=== PATIENT | female | born 1940 | race Asian ===

== ENCOUNTER 2018-10-14 18:32 | Inpatient (IN) | payer MEDICARE, MEDICAID ==
[~2018-10-14] VITALS: Ht 157.5 cm; Wt 62.1 kg
--- NOTE | 2018-10-14 18:32 | NUR ---
ED Nurse Note: A/Ox4. Brought in by [id number] from home due to tripped and fall as she was walking down the stairs. Pt states that she hit her left side of head on the ground and denies taking any blood thinners. Denies any pain. Hx of lung cancer. Last chemo was in September 20, 2018. Pt c/o left knee; swelling on the left knee noted. Addendum: 10/14/18 at 1847 by [email or web address] ED Nurse Note: A/Ox4. Brought in by [id number] from home due to tripped and fall as she was walking down the stairs. Pt states that she hit her left side of head on the ground and denies taking any blood thinners. Denies any pain. Hx of large B cell lymphoma. Last chemo was in September 20, 2018. Pt c/o left knee; swelling on the left knee noted.
[2018-10-14 18:35] VITALS: BP 165/82
--- NOTE | 2018-10-14 18:42 | Emergency Room Report ---
History of Present Illness General Chief Complaint: Multiple Trauma/Fall Source: Patient, Family Member, EMS Present Illness HPI She is a 78-year-old female who presented after a unwitnessed fall. Patient had prior history of lung cancer. She reportedly fell down while walking. She reports losing her balance immedially prior to fall. She denies loss of consciousness.Patient fell down just prior to arrival. Patient had prior history of B-cell lymphoma.Patient has had previous blood transfusions.Patient has been able to ambulate after the fall. She reports hitting the left side of her head. Allergies: Coded Allergies: DIPHENHYDRAMINE (Verified Allergy, Unknown, 10/14/18) PENICILLINS (Verified Allergy, Unknown, 10/14/18) Patient History Past Medical History: see triage record Reviewed Nursing Documentation: PMH: Agreed; PSxH: Agreed Review of Systems All Other Systems: negative except mentioned in HPI Physical Exam Vital Signs Date Time Temp Pulse Resp B/P (MAP) Pulse Ox O2 Delivery O2 Flow Rate FiO2 10/14/18 18:28 97.9 90 18 170/90 100 Room Air Sp02 EP Interpretation: reviewed, normal General Appearance: normal inspection, no apparent distress, alert, GCS 15, Chronically Ill Head: atraumatic ENT: normal ENT inspection, hearing grossly normal, normal voice Neck: normal inspection, full range of motion, supple, no bony tend Respiratory: normal inspection, lungs clear, normal breath sounds, no respiratory distress, no retraction, no wheezing Cardiovascular #1: regular rate, rhythm, no edema Gastrointestinal: normal inspection, normal bowel sounds, non tender, soft, no guarding, no hernia Genitourinary: no CVA tenderness Musculoskeletal: normal inspection, back normal, decreased range of motion, swelling Neurologic: normal inspection, alert, oriented x3, responsive, business executive III-XII nml as tested, speech normal Psychiatric: normal inspection, judgement/insight normal, mood/affect normal Skin: no rash, other - soft tissue swelling Medical Decision Making Diagnostic Impression: Primary Impression: Fall Additional Impressions: Head injury Knee effusion, left B-cell lymphoma Sinusitis ER Course Patient presented after a fall. Differential diagnosis include was not limited to head injury, cervical spine injury, fracture, anemia, syncopal episode among others. Because of complexity of patient's case laboratory testing and imaging studies were ordered. Patient was given IV pain medications. Patient was noted to have X-ray imaging of the left knee 4 views read by radiology showed suprapatellar effusion without evident fracture. CT of the head read by radiology showed diffuse sinus disease without evident acute intracranial hemorrhage or fracture. Patient was noted to have prior history of B-cell lymphoma. Dr. Stalin Nathan was contacted for inpatient management due to covering physician for Dr. Mathews. Labs Test 10/14/18 19:15 White Blood Count 8.5 K/UL (4.8-10.8) Red Blood Count 3.47 M/UL (4.20-5.40) Hemoglobin 11.6 G/DL (12.0-16.0) Hematocrit 33.9 % (37.0-47.0) Mean Corpuscular Volume 98 FL (80-99) Mean Corpuscular Hemoglobin 33.3 PG (27.0-31.0) Mean Corpuscular Hemoglobin Concent 34.1 G/DL (32.0-36.0) Red Cell Distribution Width 12.7 % (11.6-14.8) Platelet Count 135 K/UL (150-450) Mean Platelet Volume 6.0 FL (6.5-10.1) Neutrophils (%) (Auto) 83.6 % (45.0-75.0) Lymphocytes (%) (Auto) 10.5 % (20.0-45.0) Monocytes (%) (Auto) 4.9 % (1.0-10.0) Eosinophils (%) (Auto) 0.4 % (0.0-3.0) Basophils (%) (Auto) 0.6 % (0.0-2.0) Sodium Level 137 MMOL/L (136-145) Potassium Level 3.8 MMOL/L (3.5-5.1) Chloride Level 105 MMOL/L (98-107) Carbon Dioxide Level 22 MMOL/L (21-32) Anion Gap 10 mmol/L (5-15) Blood Urea Nitrogen 20 mg/dL (7-18) Creatinine 0.8 MG/DL (0.55-1.30) Estimat Glomerular Filtration Rate mL/min (>60) Glucose Level 107 MG/DL (74-106) Calcium Level 8.1 MG/DL (8.5-10.1) Total Bilirubin 0.3 MG/DL (0.2-1.0) Aspartate Amino Transf (AST/SGOT) 23 U/L (15-37) Alanine Aminotransferase (ALT/SGPT) 21 U/L (12-78) Alkaline Phosphatase 133 U/L (46-116) Troponin I 0.008 ng/mL (0.000-0.056) Total Protein 7.8 G/DL (6.4-8.2) Albumin 3.6 G/DL (3.4-5.0) Globulin 4.2 g/dL Albumin/Globulin Ratio 0.9 (1.0-2.7) Last Vital Signs Date Time Temp Pulse Resp B/P (MAP) Pulse Ox O2 Delivery O2 Flow Rate FiO2 10/14/18 18:28 97.9 90 18 170/90 100 Room Air Status: improved Disposition: PLACE IN OBSERVATION Condition: Stable Ilan Burks MD Oct 14, 2018 18:42
--- NOTE | 2018-10-14 18:44 | NUR ---
ED Nurse Note: pt denies LOC before and after the fall. Pt's grand daughter at the bedside.
[2018-10-14] MEDS ORDERED: Morphine Sulfate 2mg/ml Inj IVP ONE ×2 (18:45→21:15)
--- NOTE | 2018-10-14 18:45 | NUR ---
ED Nurse Note: blood specimens sent down to the lab.
--- NOTE | 2018-10-14 19:22 | NUR ---
HAND-OFF: Report given to PRADEEP Butt. No s/s of distress.
[2018-10-14 19:36] LABS: BASOPHILS % (AUTO) 0.6 % (0.0-2.0); EOSINOPHILS % (AUTO) 0.4 % (0.0-3.0); HEMATOCRIT 33.9 % (37.0-47.0); HEMOGLOBIN 11.6 G/DL (12.0-16.0); LYMPHOCYTES % (AUTO) 10.5 % (20.0-45.0); MEAN CORPUSCULAR VOLUME 98 FL (80-99); MONOCYTES % (AUTO) 4.9 % (1.0-10.0); NEUTROPHILS % (AUTO) 83.6 % (45.0-75.0); PLATELET COUNT 135 K/UL (150-450); RED BLOOD COUNT 3.47 M/UL (4.20-5.40); RED CELL DISTRIBUTION WIDTH 12.7 % (11.6-14.8); WHITE BLOOD COUNT 8.5 K/UL (4.8-10.8)
[2018-10-14 19:49] LABS: ANION GAP 10 mmol/L (5-15); BLOOD UREA NITROGEN 20 mg/dL (7-18); CALCIUM 8.1 MG/DL (8.5-10.1); CARBON DIOXIDE 22 MMOL/L (21-32); CHLORIDE 105 MMOL/L (98-107); CREATININE 0.8 MG/DL (0.55-1.30); POTASSIUM 3.8 MMOL/L (3.5-5.1); SODIUM 137 MMOL/L (136-145)
[2018-10-14 19:58] LABS: ALANINE AMINOTRANSFERASE 21 U/L (12-78); ALBUMIN 3.6 G/DL (3.4-5.0); ALBUMIN/GLOBULIN RATIO 0.9 (1.0-2.7); ALKALINE PHOSPHATASE 133 U/L (46-116); ASPARTATE AMINO TRANSFERASE 23 U/L (15-37); BILIRUBIN,TOTAL 0.3 MG/DL (0.2-1.0)
[2018-10-14 20:00] VITALS: BP 152/73
--- NOTE | 2018-10-14 20:00 | NUR ---
ED Nurse Note: Recieved report to resume care, pt in bed awake, alert and oriented x 4, family at bedside, pt has patent saline lock, on cardiac monitoring, pt assisted with bedpan use, left leg with swelling and pain, pulses are present, pt soiled linen, changed and given pericare, v/s stable, will resume care as ordered and continue to closely monitor while waiting for imaging for ct-scan.
[2018-10-14] MEDS ORDERED: No medications (20:42)
--- NOTE | 2018-10-14 21:16 | NUR ---
Knee immobilizer was put on pt lf leg for support as ordered by .
[2018-10-14 22:00] VITALS: BP 141/72
--- NOTE | 2018-10-14 22:20 | NUR ---
ED Nurse Note: PT HAS ROOM FOR ADMISSION, PT IS SLEEPING IN BED, MEDS GIVEN FOR PAIN EFFECTIVE, PT FAMILY MEMBER REMAINS AT BEDSIDE, REPORT CALLED TO FLOOR NURSE PRADEEP NG ON UNIT, PT BELONGINGS LIST COMPLETED, NAD OR CHANGES NOTED, WILL PREPARE AND TAKE TO FLOOR BED FOR ADMIT.
--- NOTE | 2018-10-14 23:05 | NUR ---
NURSE NOTES: Received patient from PRADEEP Butt. patient awake and able to transfer from [facility] to bed with assistance. AOx4, IV site intact and patent. Left leg brace noted. No complaints of pain at this time. Call light within reach. Bed brakes engaged.
[2018-10-15] VITALS: BP 133/66
[2018-10-15] MEDS ORDERED: Norco 5mg/325mg tab ORAL PRN (02:30)
[2018-10-15] MEDS ORDERED: Morphine Sulfate 2mg/ml Inj IVP PRN (02:30)
[2018-10-15 04:00] VITALS: BP 134/76
--- NOTE | 2018-10-15 05:30 | NUR ---
NURSE NOTES: Seen patient awake, no complaints of pain at this time.
[2018-10-15 07:30] LABS: BASOPHILS % (AUTO) 0.6 % (0.0-2.0); HEMATOCRIT 31.4 % (37.0-47.0); HEMOGLOBIN 10.7 G/DL (12.0-16.0); MEAN CORPUSCULAR VOLUME 96 FL (80-99); MONOCYTES % (AUTO) 9.7 % (1.0-10.0); NEUTROPHILS % (AUTO) 68.7 % (45.0-75.0); PLATELET COUNT 145 K/UL (150-450); RED BLOOD COUNT 3.27 M/UL (4.20-5.40); RED CELL DISTRIBUTION WIDTH 12.6 % (11.6-14.8); WHITE BLOOD COUNT 6.2 K/UL (4.8-10.8)
--- NOTE | 2018-10-15 07:51 | NUR ---
HAND-OFF: Report given to PRADEEP Rogers. Endorsed plan of care.
--- NOTE | 2018-10-15 07:56 | NUR ---
NURSE NOTES: Received report from PRADEEP Cota. Patient is in stable condition. No acute distress/SOB noted. Patient denies any pain/discomfort. Family member is at the bedside. Will continue plan of care.
[2018-10-15 07:57] LABS: ANION GAP 8 mmol/L (5-15); BLOOD UREA NITROGEN 16 mg/dL (7-18); CALCIUM 8.1 MG/DL (8.5-10.1); CARBON DIOXIDE 25 MMOL/L (21-32); CHLORIDE 105 MMOL/L (98-107); CREATININE 0.7 MG/DL (0.55-1.30); PHOSPHORUS 3.3 MG/DL (2.5-4.9); POTASSIUM 3.7 MMOL/L (3.5-5.1); SODIUM 138 MMOL/L (136-145)
[2018-10-15 08:00] VITALS: BP 128/75
[2018-10-15] MEDS: Heparin 5000 units/ml inj SUBQ SCH ×2 (09:00→20:48)
[2018-10-15 12:00] VITALS: BP 138/82
--- NOTE | 2018-10-15 12:45 | History & Physical ---
History and Physical History & Physicial Stalin Nathan MD Oct 15, 2018 12:45
--- NOTE | 2018-10-15 12:51 | Consultation ---
History of Present Illness General Date patient seen: Oct 15, 2018 Chief Complaint: Multiple Trauma/Fall Present Illness HPI 78-year-old female with extensive PHMx including Lymphoma, lung cancer who presented after a unwitnessed fall while walking. She reports losing her balance immediately prior to fall. She denies loss of consciousness. She is admitted to telemetry for further work up. Allergies: Coded Allergies: DIPHENHYDRAMINE (Verified Allergy, Unknown, 10/14/18) PENICILLINS (Verified Allergy, Unknown, 10/14/18) Medication History Miscellaneous Medications [No medications], (Reported) Patient History Healthcare decision maker Resuscitation status Full Code Advanced Directive on File No Past Medical/Surgical History Past Medical/Surgical History: (1) B-cell lymphoma Review of Systems All Other Systems: negative except mentioned in HPI Physical Exam General Appearance: WD/WN Lines, tubes and drains: peripheral HEENT: normocephalic, atraumatic Neck: non-tender, normal alignment Respiratory/Chest: chest wall non-tender, normal breath sounds Cardiovascular/Chest: normal peripheral pulses Abdomen: normal bowel sounds Genitourinary/Rectal: normal genital exam Last 24 Hour Vital Signs Date Time Temp Pulse Resp B/P (MAP) Pulse Ox O2 Delivery O2 Flow Rate FiO2 10/15/18 12:00 97.8 76 16 138/82 (100) 95 10/15/18 09:53 Room Air 10/15/18 08:00 98.0 80 18 128/75 (92) 96 10/15/18 08:00 71 10/15/18 04:00 99.1 74 20 134/76 (95) 96 10/15/18 03:38 72 10/15/18 00:00 98.0 78 18 133/66 (88) 96 10/14/18 23:48 83 10/14/18 23:37 Room Air 10/14/18 22:36 98.4 83 19 141/72 98 Room Air 10/14/18 22:00 98.4 83 19 141/72 98 Room Air 10/14/18 21:52 98.4 10/14/18 20:00 98.4 90 19 152/73 98 Room Air 10/14/18 19:40 97.9 10/14/18 18:35 97.9 101 18 165/82 100 Room Air 2/8/19 18:35 101 23 Room Air 10/14/18 18:28 97.9 90 18 170/90 100 Room Air Laboratory Tests Test 10/14/18 19:15 10/15/18 07:08 White Blood Count 8.5 K/UL (4.8-10.8) 6.2 K/UL (4.8-10.8) Red Blood Count 3.47 M/UL (4.20-5.40) L 3.27 M/UL (4.20-5.40) L Hemoglobin 11.6 G/DL (12.0-16.0) L 10.7 G/DL (12.0-16.0) L Hematocrit 33.9 % (37.0-47.0) L 31.4 % (37.0-47.0) L Mean Corpuscular Volume 98 FL (80-99) 96 FL (80-99) Mean Corpuscular Hemoglobin 33.3 PG (27.0-31.0) H 32.7 PG (27.0-31.0) H Mean Corpuscular Hemoglobin Concent 34.1 G/DL (32.0-36.0) 34.1 G/DL (32.0-36.0) Red Cell Distribution Width 12.7 % (11.6-14.8) 12.6 % (11.6-14.8) Platelet Count 135 K/UL (150-450) L 145 K/UL (150-450) L Mean Platelet Volume 6.0 FL (6.5-10.1) L 5.4 FL (6.5-10.1) L Neutrophils (%) (Auto) 83.6 % (45.0-75.0) H 68.7 % (45.0-75.0) Lymphocytes (%) (Auto) 10.5 % (20.0-45.0) L 20.0 % (20.0-45.0) Monocytes (%) (Auto) 4.9 % (1.0-10.0) 9.7 % (1.0-10.0) Eosinophils (%) (Auto) 0.4 % (0.0-3.0) 1.0 % (0.0-3.0) Basophils (%) (Auto) 0.6 % (0.0-2.0) 0.6 % (0.0-2.0) Sodium Level 137 MMOL/L (136-145) 138 MMOL/L (136-145) Potassium Level 3.8 MMOL/L (3.5-5.1) 3.7 MMOL/L (3.5-5.1) Chloride Level 105 MMOL/L (98-107) 105 MMOL/L (98-107) Carbon Dioxide Level 22 MMOL/L (21-32) 25 MMOL/L (21-32) Anion Gap 10 mmol/L (5-15) 8 mmol/L (5-15) Blood Urea Nitrogen 20 mg/dL (7-18) H 16 mg/dL (7-18) Creatinine 0.8 MG/DL (0.55-1.30) 0.7 MG/DL (0.55-1.30) Estimat Glomerular Filtration Rate mL/min (>60) mL/min (>60) Glucose Level 107 MG/DL (74-106) H 116 MG/DL (74-106) H Calcium Level 8.1 MG/DL (8.5-10.1) L 8.1 MG/DL (8.5-10.1) L Total Bilirubin 0.3 MG/DL (0.2-1.0) Aspartate Amino Transf (AST/SGOT) 23 U/L (15-37) Alanine Aminotransferase (ALT/SGPT) 21 U/L (12-78) Alkaline Phosphatase 133 U/L (46-116) H Troponin I 0.008 ng/mL (0.000-0.056) 0.000 ng/mL (0.000-0.056) Total Protein 7.8 G/DL (6.4-8.2) Albumin 3.6 G/DL (3.4-5.0) Globulin 4.2 g/dL Albumin/Globulin Ratio 0.9 (1.0-2.7) L Phosphorus Level 3.3 MG/DL (2.5-4.9) Magnesium Level 1.9 MG/DL (1.8-2.4) Height (Feet): 5 Height (Inches): 2.00 Weight (Pounds): 137 Medications Current Medications Medications (Trade) Dose Ordered Sig/Wanda Route PRN Reason Start Time Stop Time Status Last Admin Dose Admin Acetaminophen/ Hydrocodone Bitart ([place] 5/325) 1 tab Q6H PRN ORAL Mild to Moderate Pain 10/15/18 02:30 10/22/18 02:29 Heparin Sodium (Porcine) (Heparin 5000 units/ml) 5,000 units EVERY 12 HOURS SUBQ 10/15/18 09:00 11/14/18 08:59 Morphine Sulfate (Morphine Sulfate) 2 mg Q4H PRN IVP Severe Pain (Pain Scale 7-10) 10/15/18 02:30 10/22/18 02:29 Assessment/Plan Problem List: (1) Acute encephalopathy ICD Codes: G93.40 - Encephalopathy, unspecified SNOMED: 59519084, 292031974 (2) B-cell lymphoma ICD Codes: C85.10 - Unspecified B-cell lymphoma, unspecified site SNOMED: 036437603 (3) Knee effusion, left ICD Codes: M25.462 - Effusion, left knee SNOMED: 795473155 Assessment/Plan telemetry monitoring check echo cardio to see ortho to see for supra patellar effusion symptomatic treatment Anurag Arriola MD Oct 15, 2018 12:51
--- NOTE | 2018-10-15 15:30 | History and Physical Report ---
DATE OF ADMISSION: 10/14/2018 CHIEF COMPLAINT: Fall with a head trauma. HISTORY OF PRESENT ILLNESS: This is a 78-year-old Turkish female with past medical history significant for B-cell lymphoma with prior history of lung cancer, was presented to the hospital after was lost her balance and sustained a fall with sustained injury. She denies any loss of consciousness. Denies any double vision. Denies any seizure activity. Denies any bowel or urine incontinence. Shortly after initial evaluation in the emergency, the patient was admitted to the hospital with a ground level fall, possible syncope with sustained injury to the left knee effusion. PAST MEDICAL HISTORY/PAST SURGICAL HISTORY: As above, history of lung cancer and B-cell lymphoma. MEDICATIONS: At home, please refer to medication reconciliation. ALLERGIES: To Benadryl and penicillin. SOCIAL HISTORY: Denies any smoking, alcohol, or drugs. FAMILY HISTORY: Noncontributory. REVIEW OF SYSTEMS: Mostly as above. Denies any dysuria, frequency, hematuria, hematochezia. Denies any hemoptysis. Denies any suicidal or homicidal ideation. Denies any loss of consciousness. PHYSICAL EXAMINATION: VITAL SIGNS: On admission, temperature 97.9, pulse of 90, respirations 18, and blood pressure 170/90, repeat one is 138/82. GENERAL: The patient is awake, responsive, no acute distress. HEAD AND NECK: Pupils are reactive to light. Extraocular movements are intact. NECK: Supple. No JVD. LUNGS: Good air entry. No wheezing or rales. HEART: S1, S2. Regular rhythm. No gallops. ABDOMEN: Soft, nondistended, nontender. Positive bowel sounds. EXTREMITIES: No cyanosis, clubbing, or edema. Left lower extremity has knee immobilizer was noted. NEUROLOGIC: Cranial nerves II through XII grossly intact. Motor is 5/5 in all extremities. Gait was not assessed due to the patient's status. RECTAL: Refused and deferred. GENITOURINARY: Refused and deferred. PSYCHIATRIC: Mood and affect is intact. LABORATORY AND DIAGNOSTIC DATA: On admission from the ER, WBC of 8.5, hemoglobin 11, hematocrit 33, and platelets 135. Sodium 137, potassium 3.8, chloride 105, bicarbonate 22, BUN 20, creatinine 0.8, glucose is 107, calcium is 8.1. First troponin 0.08. Alkaline phosphatase 133. The patient had an EKG, normal sinus rhythm with premature atrial complex, ventricular rate of 69, no ST elevation or T-wave inversion. ASSESSMENT: 1. Fall with blunt head injury. 2. Left knee contusion. 3. History of B-cell lymphoma. 4. Prior history of lung cancer. PLAN: We will admit the patient to telemetry. We will follow up with Dr. Arriola, Pulmonary Critical Care. Monitor blood pressure closely. Code status is Full Code. DVT prophylaxis. Heparin subcutaneous. We will continue home medication and consider to get orthopedic consultation. Stalin Nathan M.D. DR: SVETLANA/SAHRA JOB#: [id number] CC:
[2018-10-15 16:00] VITALS: BP 128/69
--- NOTE | 2018-10-15 16:08 | Diagnostic Imaging Report ---
EXAM: XR Chest, 1 View CLINICAL HISTORY: DYSPNEA TECHNIQUE: Frontal view of the chest. COMPARISON: No relevant prior studies available. FINDINGS: Lungs: Unremarkable. No consolidation. Pleural space: Unremarkable. No pneumothorax. Heart: Unremarkable. No cardiomegaly. Mediastinum: Unremarkable. Bones/joints: Unremarkable. Tubes, lines and devices: Left PICC line tip to the mid SVC. IMPRESSION: No acute findings.
--- NOTE | 2018-10-15 17:10 | NUR ---
CASE MANAGEMENT: REVIEW 78/F BIBA FROM CC: MULTIPLE FALLS SI: LEFT KNEE CONTUSION . HEAD INJURY . B-CELL LYMPHOMA T 97.9 HR 101 RR 23 BP 170/90 BP 100% ROOM AIR H/H 11.6/33.9 BUN 20 IS: MORPHINE IV X1 ZOFRAN IV X1 PATIENT ADMITTED TO TELEMETRY UNIT 10/14/2018 DCP: PATIENT IS FROM HOME
--- NOTE | 2018-10-15 19:17 | NUR ---
HAND-OFF: Report given to PRADEEP Cota. Patient is in stable condition. Endorsed plan of care.
--- NOTE | 2018-10-15 19:26 | NUR ---
NURSE NOTES: Izabella Rogers RN. Patient on bed awake, AOx4, no complaints of pain at this time. Family member at bedside. No signs of distress noted. Iv site intact and patent.
[2018-10-15 20:00] VITALS: BP 127/66
[2018-10-16] VITALS: BP 123/73
[2018-10-16 04:00] VITALS: BP 123/73
--- NOTE | 2018-10-16 07:06 | NUR ---
HAND-OFF: Report given to PRADEEP Rogers. Endorsed plan of care.
--- NOTE | 2018-10-16 07:09 | NUR ---
NURSE NOTES: Received report from PRADEEP Cota and PRADEEP Stearns. Patient is in stable condition. No acute distress/SOB noted. Patient denies any pain. Will continue plan of care.
--- NOTE | 2018-10-16 07:47 | NUR ---
NURSE NOTES: Talked with Dr. Nathan if I can have CBC and BMP lab orders. CBC, BMP and Mg lab orders carried out.
[2018-10-16 08:00] VITALS: BP 131/70
[2018-10-16] MEDS: Heparin 5000 units/ml inj SUBQ SCH (09:00)
[2018-10-16 09:28] LABS: BASOPHILS % (AUTO) 0.6 % (0.0-2.0); EOSINOPHILS % (AUTO) 1.8 % (0.0-3.0); HEMATOCRIT 33.8 % (37.0-47.0); HEMOGLOBIN 11.3 G/DL (12.0-16.0); LYMPHOCYTES % (AUTO) 25.3 % (20.0-45.0); MEAN CORPUSCULAR VOLUME 97 FL (80-99); NEUTROPHILS % (AUTO) 64.3 % (45.0-75.0); PLATELET COUNT 142 K/UL (150-450); RED BLOOD COUNT 3.48 M/UL (4.20-5.40); RED CELL DISTRIBUTION WIDTH 12.8 % (11.6-14.8)
[2018-10-16 09:37] LABS: ANION GAP 9 mmol/L (5-15); BLOOD UREA NITROGEN 13 mg/dL (7-18); CALCIUM 8.7 MG/DL (8.5-10.1); CARBON DIOXIDE 25 MMOL/L (21-32); CHLORIDE 104 MMOL/L (98-107); CREATININE 0.9 MG/DL (0.55-1.30); POTASSIUM 3.8 MMOL/L (3.5-5.1); SODIUM 138 MMOL/L (136-145)
--- NOTE | 2018-10-16 11:58 | Cardiology Report ---
APPROVED REPORT EXAM: Two-dimensional and M-mode echocardiogram with Doppler and color Doppler. INDICATION Left ventricular function M-Mode DIMENSIONS IVSd1.2 (0.7-1.1cm)Left Atrium (MM)3.4 (1.6-4.0cm) LVDd3.9 (3.5-5.6cm)Aortic Root2.7 (2.0-3.7cm) PWd1.1 (0.7-1.1cm)Aortic Cusp Exc.1.7 (1.5-2.0cm) LVDs2.1 (2.5-4.0cm) PWs1.7 cm Normal left ventricular chamber size, systolic function and wall motion. Left ventricular ejection fraction estimated to be 60 %. Mild left ventricular hypertrophy. Anterior Echo-free space, may be due to pericardial fat or effusion. All other cardiac chamber sizes are within normal limits. Focal aortic valve sclerosis with adequate cusp excursion. Thickened mitral valve leaflets with normal excursion. Mild mitral annulus and aortic root calcification. Pulmonic valve not well visualized. Normal tricuspid valve structure. IVC is normal in size with physiological collapse. A color flow and spectral Doppler study was performed and revealed: No aortic insufficiency. No mitral regurgitation. Mitral diastolic velocities suggest mild left ventricular diastolic dysfunction (Grade I). Trace tricuspid regurgitation. Tricuspid systolic velocities suggests peak right ventricular systolic pressure of 30 mmHg. Mild pulmonic regurgitation present.
[2018-10-16 12:00] VITALS: BP 123/64
--- NOTE | 2018-10-16 12:58 | Internal Med Progress Note ---
Subjective Physician Name Stalin Nathan Attending Physician Stalin Nathan MD Current Medications Medications (Trade) Dose Ordered Sig/Wanda Route PRN Reason Start Time Stop Time Status Last Admin Dose Admin Acetaminophen/ Hydrocodone Bitart ([place] 5/325) 1 tab Q6H PRN ORAL Mild to Moderate Pain 10/15/18 02:30 10/22/18 02:29 Heparin Sodium (Porcine) (Heparin 5000 units/ml) 5,000 units EVERY 12 HOURS SUBQ 10/15/18 09:00 11/14/18 08:59 10/15/18 20:48 Morphine Sulfate (Morphine Sulfate) 2 mg Q4H PRN IVP Severe Pain (Pain Scale 7-10) 10/15/18 02:30 10/22/18 02:29 Allergies: Coded Allergies: DIPHENHYDRAMINE (Verified Allergy, Unknown, 10/14/18) PENICILLINS (Verified Allergy, Unknown, 10/14/18) Subjective awake, alert, responsive, NAD, No CP or SOB. Objective Last Vital Signs Date Time Temp Pulse Resp B/P (MAP) Pulse Ox O2 Delivery O2 Flow Rate FiO2 10/16/18 12:00 97.3 74 18 123/64 (83) 96 10/16/18 09:00 Room Air Laboratory Tests Test 10/16/18 08:45 White Blood Count 5.0 K/UL (4.8-10.8) Red Blood Count 3.48 M/UL (4.20-5.40) L Hemoglobin 11.3 G/DL (12.0-16.0) L Hematocrit 33.8 % (37.0-47.0) L Mean Corpuscular Volume 97 FL (80-99) Mean Corpuscular Hemoglobin 32.6 PG (27.0-31.0) H Mean Corpuscular Hemoglobin Concent 33.6 G/DL (32.0-36.0) Red Cell Distribution Width 12.8 % (11.6-14.8) Platelet Count 142 K/UL (150-450) L Mean Platelet Volume 5.8 FL (6.5-10.1) L Neutrophils (%) (Auto) 64.3 % (45.0-75.0) Lymphocytes (%) (Auto) 25.3 % (20.0-45.0) Monocytes (%) (Auto) 8.0 % (1.0-10.0) Eosinophils (%) (Auto) 1.8 % (0.0-3.0) Basophils (%) (Auto) 0.6 % (0.0-2.0) Sodium Level 138 MMOL/L (136-145) Potassium Level 3.8 MMOL/L (3.5-5.1) Chloride Level 104 MMOL/L (98-107) Carbon Dioxide Level 25 MMOL/L (21-32) Anion Gap 9 mmol/L (5-15) Blood Urea Nitrogen 13 mg/dL (7-18) Creatinine 0.9 MG/DL (0.55-1.30) Estimat Glomerular Filtration Rate mL/min (>60) Glucose Level 185 MG/DL (74-106) H Calcium Level 8.7 MG/DL (8.5-10.1) Magnesium Level 2.0 MG/DL (1.8-2.4) Intake and Output 10/15/18 10/16/18 19:00 07:00 Intake Total 480 ml 200 ml Balance 480 ml 200 ml Intake Oral 480 ml 200 ml # Voids 3 Objective GENERAL: Awake, alert, responsive, no acute distress. HEAD AND NECK: Pupils are reactive to light. Extraocular movements are intact. NECK: Supple. No JVD. LUNGS: Good air entry. No wheezing or rales. HEART: S1, S2. Regular rhythm. No gallops. ABDOMEN: Soft, nondistended, nontender. Positive bowel sounds. EXTREMITIES: No cyanosis, clubbing, or edema. Left lower extremity has knee immobilizer, NEUROLOGIC: Cranial nerves II through XII grossly intact. Motor is 5/5 in all extremities. Gait was not assessed due to the patient's status. RECTAL: Refused and deferred. GENITOURINARY: Refused and deferred. PSYCHIATRIC: Mood and affect is intact. Assessment/Plan Assessment/Plan 2D Echo: Normal left ventricular chamber size, systolic function and wall motion. Left ventricular ejection fraction estimated to be 60 %. Mild left ventricular hypertrophy. Anterior Echo-free space, may be due to pericardial fat or effusion. All other cardiac chamber sizes are within normal limits. Focal aortic valve sclerosis with adequate cusp excursion. Thickened mitral valve leaflets with normal excursion. Mild mitral annulus and aortic root calcification. Pulmonic valve not well visualized. Normal tricuspid valve structure. IVC is normal in size with physiological collapse. A color flow and spectral Doppler study was performed and revealed: No aortic insufficiency. No mitral regurgitation. Mitral diastolic velocities suggest mild left ventricular diastolic dysfunction (Grade I). Trace tricuspid regurgitation. Tricuspid systolic velocities suggests peak right ventricular systolic pressure of 30 mmHg. Mild pulmonic regurgitation present. ASSESSMENT: 1. Fall with blunt head injury. 2. Left knee contusion. 3. History of B-cell lymphoma. 4. Prior history of lung cancer. PLAN: In telemetry. Dr. Arriola, Pulmonary Critical Care. Monitor blood pressure closely. Code status is Full Code. DVT prophylaxis. Heparin subcutaneous. F/U with Dr. Cooney from orthopedic consultation. DC home today. Stalin Nathan MD Oct 16, 2018 12:58
--- NOTE | 2018-10-16 14:07 | NUR ---
NURSE NOTES: Discharge instruction given and patient verbalized understanding. Inventory check done. No acute distress/SOB noted. Removed machinist tool and die and IV line. IV site clean and no bleeding noted. Patient is discharged with stable condition via private car with daughter.
--- NOTE | 2018-10-16 20:30 | Pulmonology Progress Note ---
Assessment/Plan Problems: (1) Acute encephalopathy (2) B-cell lymphoma (3) Knee effusion, left Assessment/Plan doing better wants to go home no new complains all reviewed ok to dc home with close f/u with primary Subjective ROS Limited/Unobtainable: No Constitutional: Reports: no symptoms Respiratory: Reports: no symptoms Allergies: Coded Allergies: DIPHENHYDRAMINE (Verified Allergy, Unknown, 10/14/18) PENICILLINS (Verified Allergy, Unknown, 10/14/18) Objective Last 24 Hour Vital Signs Date Time Temp Pulse Resp B/P (MAP) Pulse Ox O2 Delivery O2 Flow Rate FiO2 10/16/18 12:00 97.3 74 18 123/64 (83) 96 10/16/18 12:00 78 10/16/18 09:00 Room Air 10/16/18 08:00 76 10/16/18 08:00 97.9 73 18 131/70 (90) 98 10/16/18 04:00 97.8 75 18 123/73 (90) 96 10/16/18 03:42 70 10/16/18 00:00 97.9 87 18 123/73 (90) 95 10/15/18 23:52 78 10/15/18 21:10 80 10/15/18 21:00 Room Air Intake and Output 10/15/18 10/16/18 19:00 07:00 Intake Total 480 ml 200 ml Balance 480 ml 200 ml Intake Oral 480 ml 200 ml # Voids 3 General Appearance: WD/WN HEENT: normocephalic, atraumatic Respiratory/Chest: chest wall non-tender, lungs clear Cardiovascular: normal peripheral pulses Abdomen: normal bowel sounds Genitourinary: normal external genitalia 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 Laboratory Tests 10/16/18 08:45: White Blood Count 5.0, Red Blood Count 3.48L, Hemoglobin 11.3L, Hematocrit 33.8L , Mean Corpuscular Volume 97, Mean Corpuscular Hemoglobin 32.6H, Mean Corpuscular Hemoglobin Concent 33.6, Red Cell Distribution Width 12.8, Platelet Count 142L, Mean Platelet Volume 5.8L, Neutrophils (%) (Auto) 64.3, Lymphocytes (%) (Auto) 25.3, Monocytes (%) (Auto) 8.0, Eosinophils (%) (Auto) 1.8, Basophils (%) (Auto) 0.6, Sodium Level 138, Potassium Level 3.8, Chloride Level 104, Carbon Dioxide Level 25, Anion Gap 9, Blood Urea Nitrogen 13, Creatinine 0.9, Estimat Glomerular Filtration Rate , Glucose Level 185H, Calcium Level 8.7 , Magnesium Level 2.0 Anurag Arriola MD Oct 16, 2018 20:30
--- NOTE | 2018-10-17 14:15 | Discharge Summary ---
Discharge Summary Discharge Summary _ DATE OF ADMISSION: 10/15/2018 DATE OF DISCHARGE: 10/16/2018 DISCHARGED BY: Dr. Nathan REASON FOR ADMISSION: 78 years old female with past medical history significant for B-cell lymphoma, and prior history of lung cancer, presented to the hospital after she lost her balance and sustained non-witnessed fall with injury. Patient reported hitting the left side of her head. Patient was able to ambulate after the fall. She denied loss of consciousness. She denied double vision. She denied any seizure activity . She denied bowel or bladder incontinence. CT of the head revealed diffuse sinus disease without evidence of acute intracranial pathology or fracture. X-ray of the left knee revealed suprapatellar effusion without evident fracture. Shortly after initial evaluation in emergency department , patient was admitted to the hospital for further management. CONSULTANTS: pulmonary Dr. Arriola [facility]SE: Patient admitted to telemetry floor. Blood pressure was closely monitored. DVT prophylaxis provided. Pain management was addressed as needed and pain as controlled. Echocardiogram revealed preserved ejection fraction of 60% with mild left ventricular hypertrophy. No evidence of wall motion abnormality. Right ventricular systolic pressure of 30. Supplemental oxygen provided as needed to keep pulse oximetry above 92% , pulse oximetry was stable on room air. CXR revealed no evidence of acute cardiopulmonary pathology. Patient to follow-up as outpatient with orthopedic surgeon. Fall precautions were maintained. Patient was ambulated under nursing supersession. Patient was able to ambulate safely. Patient was stable for discharge Due to rapid and unexpected improvement in patient condition patient was discharged in 1 day FINAL DIAGNOSES: Status post fall with blunt head injury Left knee contusion with suprapatellar effusion History of B-cell lymphoma Prior history of lung cancer DISCHARGE MEDICATIONS: List of medication was sent with patient DISCHARGE INSTRUCTIONS: Patient was discharged home Follow up with primary care provider in one week. Follow up with her orthopedic surgeon Dr. Cooney for further evaluation of left knee suprapatellar effusion as outpatient. I have been assigned to dictate discharge summary for this account. I was not involved in the patient's management. Kathya Ochoa NP Oct 17, 2018 14:15
--- NOTE | 2018-10-17 17:15 | Consultation ---
DATE OF CONSULTATION: 10/15/2018 ORTHOPEDIC CONSULTATION CONSULTING PHYSICIAN: Jeb Cooney M.D. CHIEF COMPLAINT: Left knee pain. HISTORY OF PRESENT ILLNESS: The patient is a pleasant 78-year-old female with history of lymphoma, who subsequently lost her balance and fell. She was admitted to the hospital for possible syncope workup, injury to left knee. Orthopedic consultation was obtained for further care and recommendation. PAST MEDICAL HISTORY: Significant for lung cancer and lymphoma. MEDICATIONS: Per intake chart. ALLERGIES: None. SOCIAL HISTORY: The patient does not smoke or drink. FAMILY HISTORY: Noncontributory. PHYSICAL EXAMINATION: GENERAL: The patient is alert and oriented. She is resting comfortably at this time in bed. She speaks Slovak, does not appear to be in any acute distress. EXTREMITIES: Left knee examination shows some pain on the medial lateral joint line. Moderate effusion. No pain along the quadriceps tendon or patellar tendon or patella itself. Posterior calf is soft. NEUROVASCULAR: Normal. IMAGING STUDY: Left knee shows no obvious fracture or dislocation. There were some osteophytes along with the mild medial compartment arthrosis. ASSESSMENT: 1. Left knee contusion secondary to effusion. 2. Left knee arthritis. DISCUSSION: At this point, the patient's imaging studies would recommend as conservative treatment. Anti-inflammatories, weightbearing as tolerated. Cryotherapy. She has continued issues, particularly mechanical symptoms. Ultimately, she should consider getting an MRI. The x-rays that were obtained were nonweightbearing and she has some arthritis in the medial compartment particularly in light of the spurs in the medial compartment. Jeb Cooney M.D. DR: ANCA JOB#: [id number] CC:
--- NOTE | 2018-10-18 14:24 | Cardiology Report ---
APPROVED REPORT EKG Measurement Heart [id number] Sinus rhythm with premature atrial complexes Otherwise normal ECG
== END 2018-10-16 14:05 | disposition home or self-care (01) | DRG 914 ==
LOC: EDBD 18:32 → EMR 19:17 → EDBEDREQ 20:28 → 2E 21:02 → EDBEDREQ 21:59 → 2E 23:47 → OBSVTOIN 10-15 15:35
DX: S09.90XA Unspecified injury of head, initial encounter (principal); C85.10 Unspecified B-cell lymphoma, unspecified site; G93.40 Encephalopathy, unspecified; M25.462 Effusion, left knee; M17.12 Unilateral primary osteoarthritis, left knee; Z88.0 Allergy status to penicillin; Z85.118 Personal history of other malignant neoplasm of bronchus and lung; W19.XXXA Unspecified fall, initial encounter; Y92.9 Unspecified place or not applicable
CPT/HCPCS: 36415; 70450; 71045; 80048; 80053; 83735; 84100; 84484; 85025; 86850; 86900; 86901; 93005; 93306; 96374; 96375; 96376; 99285; J2405